=== PATIENT | female | born 1965 | race Caucasian/White ===

== ENCOUNTER 2018-10-07 08:41 | Day surgery (SDC) | payer BC ==
[2018-10-07] MEDS ORDERED: FENTAnyl 50 MCG/ML VIAL (11:17)
[2018-10-07] MEDS ORDERED: MIDAZOLAM 1 MG/ML 2 ML INJ (11:17)
== END 2018-10-07 11:50 | disposition home or self-care (01) ==
LOC: GIL 08:41
DX: Z12.11 Encounter for screening for malignant neoplasm of colon (principal); K64.8 Other hemorrhoids
CPT/HCPCS: 45378; 84703